=== PATIENT | female | born 1990 ===

== ENCOUNTER 2020-10-14 07:41 | Outpatient (CLI) | payer OTHER, SELFPAY ==
[2020-10-15 01:16] LABS: SARS-CoV-2 PCR by NAA Not Detected (NotDetected)
== END 2020-10-14 07:42 | disposition home or self-care (01) ==
LOC: CSHLAB 07:41
PROVIDERS: ATTEND Family Medicine
DX: Z20.822 Contact with and (suspected) exposure to COVID-19 (principal)
CPT/HCPCS: 87635; U0003; U0005